=== PATIENT | female | born 1990 | race Two or more races ===

== ENCOUNTER 2023-05-18 13:50 | Observation (INO) | payer OTHER | END 2023-05-18 16:10 | disposition home or self-care (01) | LOC: UNDOADMOB 13:50 → LDRP 13:50 | PROVIDERS: ADMIT Obstetrics & Gynecology; ATTEND Obstetrics & Gynecology | DX: O62.9 Abnormality of forces of labor, unspecified (principal); O26.893 Other specified pregnancy related conditions, third trimester; R51.9 Headache, unspecified; Z3A.37 37 weeks gestation of pregnancy | CPT/HCPCS: 59025; 76805; 81002; 94760; G0378 ==

== ENCOUNTER 2023-05-22 11:46 | Observation (INO) | payer OTHER ==
[~2023-05-22] VITALS: Ht 160 cm; Wt 88.5 kg
== END 2023-05-22 13:27 | disposition home or self-care (01) ==
LOC: LDRP 11:46
PROVIDERS: ADMIT Obstetrics & Gynecology; ATTEND Obstetrics & Gynecology
DX: O60.02 Preterm labor without delivery, second trimester (principal); Z3A.38 38 weeks gestation of pregnancy
CPT/HCPCS: 59025; 81002; 94760; G0378

== ENCOUNTER 2023-05-30 16:08 | Observation (INO) | payer OTHER ==
[~2023-05-30] VITALS: Ht 160 cm; Wt 88.9 kg
[2023-05-30] MEDS ORDERED: PREN-96 PO (19:25)
== END 2023-05-30 19:35 | disposition home or self-care (01) ==
LOC: LDRP 16:08
PROVIDERS: ADMIT Obstetrics & Gynecology; ATTEND Obstetrics & Gynecology
DX: O36.8130 Decreased fetal movements, third trimester, not applicable or unspecified (principal); O62.9 Abnormality of forces of labor, unspecified; O26.893 Other specified pregnancy related conditions, third trimester; N89.8 Other specified noninflammatory disorders of vagina; Z3A.39 39 weeks gestation of pregnancy
CPT/HCPCS: 59025; 76818; 81002; 84112; 94760; G0378; Q0114